=== PATIENT | male | born 1975 | race Caucasian/White ===

== ENCOUNTER 2017-04-28 22:08 | Emergency (ER) | payer MEDICAID ==
--- NOTE | 2017-04-28 22:16 | EDPHY ---
H & P HPI/ROS: CHIEF COMPLAINT: Alcohol withdrawal HISTORY OF PRESENT ILLNESS: [ ] [PRIMARY CARE PROVIDER:][ ] REVIEW OF SYSTEMS: [A ten point review of systems was performed and is negative with the exception of the items mentioned in the HPI] PHYSICAL EXAM (Prior to examination, patient consented to physical exam, hands were washed and my usual and customary physical exam procedures followed) 1) GENERAL: [Well-developed, well-nourished, alert and oriented. Appears to be in no acute distress.] 2) HEAD: [Normocephalic] 3) HEENT: [sclera anicteric ] 4) LUNGS: [Breathing comfortably.] [5) SKIN: ] [ ] [6) MUSCULOSKELETAL:] [ ] 7) NEUROLOGIC: DIFFERENTIAL DIAGNOSIS: [ ] MDM/Departure - Depart Disposition: Home, Routine, Self-Care Clinical Impression: Alcohol withdrawal Qualifiers: Complication of substance-induced condition: uncomplicated Qualified Code(s): F10.230 - Alcohol dependence with withdrawal, uncomplicated Condition: Good Instructions: Alcohol Withdrawal (ED), Chlordiazepoxide (By mouth) Referrals: [facility] [Outside] - As per Instructions
[2017-04-28 22:44] VITALS: BP 138/93; PULSE 105; RESP 18; TEMP 97.7; O2SAT 93
[2017-04-28] MEDS ORDERED: chlordiazePOXIDE 25 MG CAP PO ONE (22:44)
--- NOTE | 2017-04-28 22:44 | EDPHY ---
H & P Time Seen by Provider: 04/28/17 22:14 HPI/ROS: CHIEF COMPLAINT: Alcohol detoxification assistance HISTORY OF PRESENT ILLNESS: 42-year-old man male in the ER with his female partner requesting [facility]. He has previously been sober for several years and started drinking heavily 1 week ago. Last drink of alcohol was 1 hr prior to arrival. No suicidal or homicidal ideation. No seizure. No hallucination. No delirium. No altered mental status. PHYSICAL EXAM (Prior to examination, patient consented to physical exam, hands were washed and my usual and customary physical exam procedures followed) 1) GENERAL: Well-developed, well-nourished, alert and oriented. Appears anxious. Answering questions appropriately. 2) HEAD: Normocephalic 3) HEENT: sclera anicteric 4) LUNGS: Breathing comfortably. MDM/Departure - [facility] ED Course/Re-evaluation: Doubt delirium tremens. Doubt alcohol withdrawal seizure. He is planning on having his drive him to the [facility] with [facility]. Care of patient under supervision of secondary supervising physician Dr Palacios . - Depart Disposition: Home, Routine, Self-Care Clinical Impression: Alcohol withdrawal Qualifiers: Complication of substance-induced condition: uncomplicated Qualified Code(s): F10.230 - Alcohol dependence with withdrawal, uncomplicated Condition: Good Instructions: Chlordiazepoxide (By mouth), Alcohol Withdrawal (ED) Referrals: [facility] [Outside] - As per Instructions
[2017-04-28] MEDS ORDERED: CHLORDIAZEPOXIDE 25MG PREPK#6 BTL TAKEHOME ONE (22:52)
== END 2017-04-28 23:03 | disposition home or self-care (01) ==
DX: F10.230 Alcohol dependence with withdrawal, uncomplicated (principal)